=== PATIENT | female | born 1970 | race African-American/Black ===

== ENCOUNTER 2017-03-02 18:42 | Emergency (ER) | payer OTHER ==
[~2017-03-02] VITALS: Ht 167.6 cm; Wt 77.1 kg
--- NOTE | ~2017-03-02 | EKG ---
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 03/05/17 0832 [id number] 1846 Terrence Hines MD, FACC /EPI
[~2017-03-02 18:42] MED LIST: CIPROFLOXACIN500 M1 PO; CYCLOBENZAPRINE5 MG PO; IBUPROFEN 600600 M1 PO; MACROBID 100 M100 M1 PO; MEDROLDOSEPACK PO; NAPROSYN500 MG PO; NOHOMEMEDICATIONS; NORCO 5-325 TA1 EACH PO; ONDANSETRON HCL4 M2 PO; PREDNISONE 20 M20 MG PO; PROVENTIL HFA6.7 G1 INH; ULTRAM 50MG TAB50 MG PO; ZOFRAN4 MG PO
[2017-03-02 19:13] LABS: BASOPHILS 0.9 % (0.0-2.0); EOSINOPHILS 2.4 % (0.0-3.0); HEMATOCRIT 38.9 % (37.0-47.0); HEMOGLOBIN 13.2 gm/dL (12.0-15.0); LYMPHOCYTES 39.7 % (24.0-44.0); MANUAL DIFF NO; MCH 32.4 pg (26.0-34.0); MCHC 33.9 g/dL (28.0-37.0); MCV 95.5 fL (80.0-100.0); MONOCYTES 7.9 % (1.0-8.0); PLATELET COUNT 224 thou/uL (150-400); POLYS 49.1 % (36.0-66.0); RBC 4.08 mil/uL (4.20-5.00); RDW 13.8 % (10.5-14.5)
[2017-03-02 19:23] LABS: ANION GAP 11 mmol/L (7-16); BUN 12 mg/dL (7-18); CALCIUM 9.2 mg/dL (8.5-10.1); CHLORIDE 104 mmol/L (98-107); CO2 26 mmol/L (21-32); GLUCOSE 85 mg/dL (74-106); POTASSIUM 3.5 mmol/L (3.5-5.1); SODIUM 141 mmol/L (136-145)
[2017-03-02 19:32] LABS: TROPONIN-I < 0.04 ng/mL (<0.04-0.07)
[2017-03-02 19:49] VITALS: BP 146/92
== END 2017-03-02 19:55 | disposition home or self-care (01) ==
LOC: ER 18:42
PROVIDERS: Emergency Medicine
DX: R55 Syncope and collapse (principal); F10.99 Alcohol use, unspecified with unspecified alcohol-induced disorder; Z87.891 Personal history of nicotine dependence

== ENCOUNTER 2018-02-13 19:41 | Emergency (ER) | payer OTHER ==
[~2018-02-13] VITALS: Ht 167.6 cm; Wt 77.1 kg
--- NOTE | ~2018-02-13 | EKG ---
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
[2018-02-13 19:54] LABS: URINE BILIRUBIN NEGATIVE (Negative); URINE BLOOD NEGATIVE (Negative); URINE CLARITY CLEAR; URINE COLOR YELLOW; URINE GLUCOSE-RANDOM* NEGATIVE (Negative); URINE KETONES NEGATIVE (Negative); URINE LEUKOCYTES TRACE (Negative); URINE NITRITE NEGATIVE (Negative); URINE PROTEIN (DIPSTICK) NEGATIVE (Negative); URINE UROBILINOGEN 0.2 E.U./dl (0.2-1.0)
[2018-02-13 20:04] LABS: ABSOLUTE NEUTROPHILS 4.9 thou/uL (1.4-8.2); BASOPHILS 0.8 % (0.0-2.0); EOSINOPHILS 2.4 % (0.0-3.0); HEMATOCRIT 40.5 % (37.0-47.0); LYMPHOCYTES 23.6 % (24.0-44.0); MCH 33.2 pg (26.0-34.0); MCHC 34.6 g/dL (28.0-37.0); MCV 96.1 fL (80.0-100.0); MONOCYTES 7.5 % (1.0-8.0); PLATELET COUNT 220 thou/uL (150-400); POLYS 65.7 % (36.0-66.0); RBC 4.22 mil/uL (4.20-5.00); RDW 13.9 % (10.5-14.5); WBC 7.4 thou/uL (4.0-11.0)
[2018-02-13 20:12] LABS: ANION GAP 4 mmol/L (7-16); BUN 8 mg/dL (7-18); CALCIUM 8.9 mg/dL (8.5-10.1); CHLORIDE 103 mmol/L (98-107); CO2 29 mmol/L (21-32); CREATININE 1.1 mg/dL (0.6-1.0); GLUCOSE 127 mg/dL (74-106); POTASSIUM 3.5 mmol/L (3.5-5.1); SODIUM 136 mmol/L (136-145)
[2018-02-13 20:21] LABS: ALBUMIN 3.5 g/dL (3.4-5.0); SGOT 15 U/L (15-37); SGPT 18 U/L (30-65); TOTAL BILIRUBIN 0.6 mg/dL (<0.1-1.0); TOTAL PROTEIN 7.4 g/dL (6.4-8.2); TROPONIN-I <0.06 ng/mL (<0.06)
[2018-02-13] MEDS ORDERED: NORCO 5-325 TA1 EACH PO (22:40)
[2018-02-13] MEDS ORDERED: AUGMENTIN 500-1 EACH PO (22:40)
[2018-02-14 00:22] VITALS: BP 117/72
== END 2018-02-13 22:50 | disposition home or self-care (01) ==
LOC: ER 19:41
PROVIDERS: Physician Assistant
DX: R07.89 Other chest pain (principal); N60.01 Solitary cyst of right breast; N64.4 Mastodynia; Z72.0 Tobacco use; Z90.89 Acquired absence of other organs

== ENCOUNTER 2018-07-26 06:12 | Emergency (ER) | payer OTHER ==
[~2018-07-26] VITALS: Ht 167.6 cm; Wt 72.6 kg
[~2018-07-26 06:12] MED LIST changes: +AUGMENTIN 500-1 EACH PO
[2018-07-26] MEDS ORDERED: TRAMADOL 50 MG50 MG PO (06:36)
[2018-07-26] MEDS ORDERED: NAPROSYN500 MG PO (06:36)
[2018-07-26 06:44] VITALS: BP 153/106
== END 2018-07-26 06:44 | disposition home or self-care (01) ==
LOC: ER 06:12
DX: M70.52 Other bursitis of knee, left knee (principal); F17.210 Nicotine dependence, cigarettes, uncomplicated; Z98.890 Other specified postprocedural states; Y93.89 Activity, other specified

== ENCOUNTER 2019-01-11 09:41 | Emergency (ER) | payer OTHER ==
[~2019-01-11] VITALS: Ht 167.6 cm; Wt 72.6 kg
[2019-01-11 09:43] VITALS: BP 168/66
[2019-01-11 10:22] LABS: ABSOLUTE NEUTROPHILS 2.4 thou/uL (1.4-8.2); EOSINOPHILS 2.9 % (0.0-3.0); HEMATOCRIT 36.7 % (37.0-47.0); HEMOGLOBIN 12.2 gm/dL (12.0-15.0); LYMPHOCYTES 30.7 % (24.0-44.0); MCH 32.3 pg (26.0-34.0); MCHC 33.2 g/dL (28.0-37.0); MCV 97.3 fL (80.0-100.0); MONOCYTES 6.5 % (1.0-8.0); PLATELET COUNT 186 thou/uL (150-400); POLYS 57.9 % (36.0-66.0); RBC 3.77 mil/uL (4.20-5.00); RDW 13.3 % (10.5-14.5); WBC 4.2 thou/uL (4.0-11.0)
[2019-01-11 10:33] LABS: ANION GAP 8 mmol/L (7-16); BUN 11 mg/dL (7-18); CALCIUM 8.8 mg/dL (8.5-10.1); CHLORIDE 104 mmol/L (98-107); CO2 29 mmol/L (21-32); GLUCOSE 85 mg/dL (74-106); POTASSIUM 4.1 mmol/L (3.5-5.1); SODIUM 141 mmol/L (136-145)
[2019-01-11 10:43] LABS: ALBUMIN 3.5 g/dL (3.4-5.0); MAGNESIUM 1.8 mg/dL (1.8-2.4); SGOT 19 U/L (15-37); SGPT 18 U/L (30-65); TOTAL BILIRUBIN 0.2 mg/dL (<0.1-1.0); TOTAL PROTEIN 6.6 g/dL (6.4-8.2); TROPONIN-I <0.06 ng/mL (<0.06)
--- NOTE | 2019-01-11 11:04 | EKG ---
[address] 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1970 Requested By: Florian Roberto Order Number: [id number] MD: Terrence Hines Measurements Intervals [place] Rate: 58 P: 47 [place]: 168 QRS: 15 QRSD: 84 T: 23 QT: 454 QTc: 446 Interpretive Statements Sinus bradycardia Otherwise no significant abnormality Compared to ECG 02/13/2018 19:58:51 No significant change was found Electronically Signed On 01-11-2019 11:03:58 CDT by Terrence Hines [email or web address] ��������������������������������������������� <ELECTRONICALLY SIGNED> ���������������������������������������� By: Terrence Hines MD, [facility] ��������������������������������������������� 01/11/19 1103 0952 0952 Terrence Hines MD, [facility] /EPI
== END 2019-01-11 13:00 | disposition home or self-care (01) ==
LOC: ER 09:41
PROVIDERS: Emergency Medicine
DX: R07.89 Other chest pain (principal); I10 Essential (primary) hypertension; F17.210 Nicotine dependence, cigarettes, uncomplicated; Z98.51 Tubal ligation status

== ENCOUNTER 2019-08-14 11:05 | Emergency (ER) | payer BC ==
[~2019-08-14] VITALS: Ht 175.3 cm; Wt 75.8 kg
[~2019-08-14 11:05] MED LIST changes: +MOBIC7.5 MG PO; +TRAMADOL 50 MG50 MG PO
[2019-08-14 11:30] VITALS: BP 123/76
[2019-08-14] MEDS ORDERED: BENZONATATE200 MG PO (13:11)
[2019-08-14] MEDS ORDERED: PROAIR HFA8.5 GM INH (13:11)
[2019-08-14] MEDS ORDERED: PREDNISONE 20 M20 MG PO (13:11)
== END 2019-08-14 13:12 | disposition home or self-care (01) ==
LOC: ER 11:05
DX: J20.9 Acute bronchitis, unspecified (principal); I10 Essential (primary) hypertension; F17.210 Nicotine dependence, cigarettes, uncomplicated

== ENCOUNTER 2019-09-14 13:07 | Emergency (ER) | payer BC ==
[~2019-09-14] VITALS: Ht 167.6 cm; Wt 69.8 kg
[~2019-09-14 13:07] MED LIST changes: +BENZONATATE200 MG PO; +PROAIR HFA8.5 GM INH
[2019-09-14] MEDS ORDERED: IBUPROFEN 800800 M1 PO (15:09)
[2019-09-14 15:18] VITALS: BP 149/100
== END 2019-09-14 15:19 | disposition home or self-care (01) ==
LOC: ER 13:07
DX: S61.217A Laceration without foreign body of left little finger without damage to nail, initial encounter (principal); I10 Essential (primary) hypertension; F17.210 Nicotine dependence, cigarettes, uncomplicated; Z98.51 Tubal ligation status; W26.0XXA Contact with knife, initial encounter; Y93.89 Activity, other specified; Y92.89 Other specified places as the place of occurrence of the external cause; Y99.8 Other external cause status

== ENCOUNTER 2019-09-24 13:35 | Emergency (ER) | payer BC ==
[2019-09-24 13:35] VITALS: BP 123/88
[~2019-09-24 13:35] MED LIST changes: +IBUPROFEN 800800 M1 PO
== END 2019-09-24 14:37 | disposition home or self-care (01) ==
LOC: ER 13:35
DX: S61.217D Laceration without foreign body of left little finger without damage to nail, subsequent encounter (principal); X58.XXXD Exposure to other specified factors, subsequent encounter; I10 Essential (primary) hypertension

== ENCOUNTER 2019-11-04 17:43 | Emergency (ER) | payer BC ==
[~2019-11-04] VITALS: Ht 170.2 cm; Wt 72.6 kg
[2019-11-04] MEDS ORDERED: NORVASC 2.5 MG2.5 M1 PO (18:00)
[2019-11-04 18:19] LABS: ABSOLUTE NEUTROPHILS 2.6 thou/uL (1.4-8.2); BASOPHILS 0.7 % (0.0-2.0); EOSINOPHILS 3.4 % (0.0-3.0); HEMOGLOBIN 13.9 gm/dL (12.0-15.0); LYMPHOCYTES 35.6 % (24.0-44.0); MCH 33.3 pg (26.0-34.0); MCHC 33.9 g/dL (28.0-37.0); MCV 98.2 fL (80.0-100.0); MONOCYTES 5.7 % (1.0-8.0); PLATELET COUNT 220 thou/uL (150-400); POLYS 54.6 % (36.0-66.0); RBC 4.18 mil/uL (4.20-5.00); RDW 14.1 % (10.5-14.5); WBC 4.7 thou/uL (4.0-11.0)
[2019-11-04 18:24] LABS: ANION GAP 10 mmol/L (7-16); BUN 13 mg/dL (7-18); CALCIUM 9.1 mg/dL (8.5-10.1); CHLORIDE 104 mmol/L (98-107); CO2 25 mmol/L (21-32); GLUCOSE 90 mg/dL (74-106); POTASSIUM 3.6 mmol/L (3.5-5.1); SODIUM 139 mmol/L (136-145)
[2019-11-04 18:34] LABS: ALBUMIN 3.5 g/dL (3.4-5.0); LIPASE 139 U/L (73-393); SGOT 13 U/L (15-37); SGPT 17 U/L (30-65); TOTAL BILIRUBIN 0.3 mg/dL (<0.1-1.0); TOTAL PROTEIN 6.5 g/dL (6.4-8.2); TROPONIN-I <0.06 ng/mL (<0.06)
[2019-11-04 19:20] VITALS: BP 111/71
[2019-11-04 20:29] LABS: URINE BILIRUBIN NEGATIVE (Negative); URINE BLOOD NEGATIVE (Negative); URINE CLARITY CLEAR; URINE COLOR YELLOW; URINE GLUCOSE-RANDOM* NEGATIVE (Negative); URINE KETONES NEGATIVE (Negative); URINE LEUKOCYTES-REFLEX NEGATIVE (Negative); URINE NITRITE-REFLEX NEGATIVE (Negative); URINE PROTEIN (DIPSTICK) NEGATIVE (Negative); URINE UROBILINOGEN 0.2 E.U./dl (0.2-1.0)
[2019-11-04 20:36] LABS: AMP/METHAMP Negative (Negative); BARBITURATES Negative (Negative); BENZODIAZEPINES Negative (Negative); COCAINE Negative (Negative); METHADONE Negative (Negative); OPIATES Negative (Negative); PCP Negative (Negative)
--- NOTE | 2019-11-05 08:09 | EKG ---
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1970 Requested By: Mikhail Ashford Order Number: [id number] MD: Terrence Hines Measurements Intervals [place] Rate: 84 P: DC: QRS: 39 QRSD: 77 T: 52 QT: 375 QTc: 444 Interpretive Statements Atrial fibrillation Nonspecific ST segment abnormality Compared to ECG 01/11/2019 09:52:37 Sinus bradycardia no longer present Electronically Signed On 11-05-2019 8:07:38 CDT by Terrence Hines [email or web address] <ELECTRONICALLY SIGNED> By: Terrence Hines MD, FACC 11/05/19806 182 182 Terrence Hines MD, [facility] /EPI
== END 2019-11-04 20:57 | disposition home or self-care (01) ==
LOC: ER 17:43
PROVIDERS: Physician Assistant
DX: I95.1 Orthostatic hypotension (principal); I48.91 Unspecified atrial fibrillation; R11.2 Nausea with vomiting, unspecified; I10 Essential (primary) hypertension; F17.210 Nicotine dependence, cigarettes, uncomplicated; Z98.51 Tubal ligation status

== ENCOUNTER 2020-06-06 20:19 | Emergency (ER) | payer BC ==
[~2020-06-06] VITALS: Ht 167.6 cm; Wt 72.6 kg
[~2020-06-06 20:19] MED LIST changes: +NORVASC 2.5 MG2.5 M1 PO
[2020-06-06] MEDS ORDERED: LISINOPRIL-HCT1 EACH PO (20:27)
[2020-06-06] MEDS ORDERED: CLONAZEPAM 0.50.5 M1 PO (20:27)
[2020-06-06 20:42] LABS: BASOPHILS 1.1 % (0.0-2.0); EOSINOPHILS 4.9 % (0.0-3.0); HEMATOCRIT 41.3 % (37.0-47.0); LYMPHOCYTES 45.1 % (24.0-44.0); MCH 33.4 pg (26.0-34.0); MCHC 33.9 g/dL (28.0-37.0); MCV 98.5 fL (80.0-100.0); MONOCYTES 6.1 % (1.0-8.0); PLATELET COUNT 184 thou/uL (150-400); POLYS 42.8 % (36.0-66.0); RBC 4.19 mil/uL (4.20-5.00); RDW 13.6 % (10.5-14.5); WBC 4.8 thou/uL (4.0-11.0)
[2020-06-06 21:01] LABS: ANION GAP 14 mmol/L (7-16); BUN 10 mg/dL (7-18); CALCIUM 8.9 mg/dL (8.5-10.1); CHLORIDE 107 mmol/L (98-107); CO2 25 mmol/L (21-32); CREATININE 1.1 mg/dL (0.6-1.0); GLUCOSE 93 mg/dL (74-106); POTASSIUM 3.4 mmol/L (3.5-5.1); SODIUM 146 mmol/L (136-145)
[2020-06-06 21:09] LABS: TROPONIN-I <0.06 ng/mL (<0.06)
[2020-06-06] MEDS ORDERED: ZOFRAN ODT4 MG PO (21:43)
[2020-06-06 21:56] VITALS: BP 115/79
--- NOTE | 2020-06-07 07:55 | EKG ---
[facility] [place] [address] ELECTROCARDIOGRAM REPORT Name: ELMER VASQUEZ Room #: DEP [facility]#: [id number] Admission: 06/06/20 Attend Phys: Discharge: 06/06/20 Date of : [birth year] Report #: [id number] THIS REPORT FOR: cc: AMIRAH - Beth family physician/PCP AMIRAH - Beth family physician/PCP Terrence Hines MD [facility] THIS REPORT FOR: //name// 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
== END 2020-06-06 21:57 | disposition home or self-care (01) ==
LOC: ER 20:19
PROVIDERS: Emergency Medicine
DX: F41.8 Other specified anxiety disorders (principal); R06.4 Hyperventilation; R55 Syncope and collapse; I10 Essential (primary) hypertension; F17.210 Nicotine dependence, cigarettes, uncomplicated; Z79.899 Other long term (current) drug therapy